=== PATIENT | female | born 1995 | race Caucasian/White ===

== ENCOUNTER 2016-09-03 10:30 | Emergency (ER) | payer OTHER ==
[2016-09-03] MEDS ORDERED: ONDANSETRON 4MG/2ML VIAL (J2405) As Ordered ONE (11:45)
[2016-09-03 11:53] LABS: BASO # 0.1 K/mm3 (0.0-0.2); BASO % 1.1 % (0.0-1.0); EOS # 0.1 K/mm3 (0.0-0.50); EOS % 1.4 % (0.0-3.0); LARGE UNSTAINED CELL # 0.1 K/mm3 (0.0-0.4); LARGE UNSTAINED CELL % 1.6 % (0.0-4.0); LYMPH # 1.6 K/mm3 (1.5-6.5); LYMPH % 18.4 % (24.0-44.0); MEAN CORPUSCULAR HEMOGLOBIN 28.7 pg (27.0-33.0); MEAN CORPUSCULAR HGB CONC 32.9 g/dl (32.0-36.5); MEAN CORPUSCULAR VOLUME 87.1 fl (80.0-96.0); MONO # 0.5 K/mm3 (0.0-0.8); NEUTROPHILS # 5.7 K/mm3 (1.8-7.7); NEUTROPHILS % 71.4 % (36.0-66.0); PLATELET COUNT, AUTOMATED 240 k/mm3 (150-450); RED CELL DISTRIBUTION WIDTH 14.5 % (11.5-14.5)
[2016-09-03 12:52] LABS: ALBUMIN 2.5 GM/DL (3.2-5.2); ALBUMIN/GLOBULIN RATIO 0.66 (1.00-1.93); ALKALINE PHOSPHATASE 91 U/L (45-117); ALT/SGPT 15 U/L (12-78); ANION GAP 8 MEQ/L (8-16); AST/SGOT 9 U/L (15-37); BILIRUBIN,DIRECT < 0.1 MG/DL (0.0-0.2); BILIRUBIN,TOTAL 0.3 MG/DL (0.2-1.0); BLOOD UREA NITROGEN 7 MG/DL (7-18); CALCIUM LEVEL 8.5 MG/DL (8.5-10.1); CARBON DIOXIDE LEVEL 26 MEQ/L (21-32); CHLORIDE LEVEL 107 MEQ/L (98-107); CREATININE FOR GFR 0.59 MG/DL (0.55-1.02); GLOMERULAR FILTRATION RATE > 60.0 (>60); GLUCOSE, FASTING 68 MG/DL (70-105); POTASSIUM SERUM 3.7 MEQ/L (3.5-5.1); SODIUM LEVEL 141 MEQ/L (136-145); TOTAL PROTEIN 6.3 GM/DL (6.4-8.2)
--- NOTE | 2016-09-03 13:45 | EDDOCDS ---
Nurse's Notes [facility] Name: Oralia Lim Age: 21 yrs Sex: Female : 1995 Arrival Date: 09/03/2016 Time: 10:30 Bed TR7 Private MD: Elizabet Dinero Diagnosis: Nausea and vomiting Presentation: 09/03 10:36 Presenting complaint: Patient states: "my urine is orange so I know that I'm severely hs1 dehydrated" Patient also reports feeling fine however having dizzy spells and lightheartedness. Patient states unable to keep anything down even Pedialyte. Pt reports day 3 of symptoms. Adult Sepsis Screening: The patient does not have new or worsening altered mentation. Patient's respiratory rate is less than 22. Systolic blood pressure is greater than 100. Patient has a qSOFA score of 0- Negative Sepsis Screen. Suicide/Homicide risk assessment- the patient denies having any suicidal and/or homicidal ideations and does not present with any other emotional, behavioral or mental health complaints. Status: Patient is not a service worker helper or dependent. Transition of care: patient was not received from another setting of care. 10:36 Acuity: MERI Level 3 hs1 10:36 Method Of Arrival: Walkin/Carried/Asstd hs1 Triage Assessment: 10:40 General: Appears in no apparent distress, Behavior is appropriate for age. Pain: Denies hs1 pain. HIV screening NA for this visit Offered previously. Respiratory: No deficits noted. Derm: Skin is pink, warm & dry. normal. 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 Vitamin Oral tab 1 tab once daily 2. Vitamin D Oral 1,000 unit daily 3. ferrous sulfate 325 mg (65 mg iron) Oral tab daily - PMHx: none; - PSHx: lower back tumors (fatty tumors) removed; - Social history: Smoking status: Patient states was never smoker of tobacco. No barriers to communication noted, The patient speaks fluent Micronesian, Speaks appropriately for age. - Family history: Not pertinent. - : The pt / caregiver states he / she is not on anticoagulants. Home medication list is obtained from the patient. - Exposure Risk Screening:: None identified. Screenin:49 Screening information is obtained from the patient. Fall risk: No risks identified. jjr Assistance ADL's: requires no assistance with activities of daily living. Abuse/DV Screen: The patient / caregiver reports he/she is: not in a situation that causes fear, pain or injury. Nutritional screening: No deficits noted. Advance Directives: There is no active DNR order. home support is adequate. Assessment: 11:50 General: Appears in no apparent distress, comfortable, Behavior is cooperative. Pain: mk4 Denies pain. GI: Abdomen is Bowel sounds present X 4 quads. Abd is soft and non tender Reports nausea, vomiting, since the past 2 weeks , denies any pain. Derm: Skin is intact, is healthy with good turgor, Skin is pink, warm & dry. 12:48 General: Appears in no apparent distress, Behavior is appropriate for age. Pain: Denies jjr pain. GI: Denies nausea. : Denies cramping vaginal bleeding. Derm: No deficits noted. 13:20 Reassessment: Patient denies pain at this time. Patient states feeling better. Patient mk4 states symptoms have improved. Vital Signs: 10:31 BP 122 / 89; Pulse 86; Resp 18; Temp 97.4; Pulse Ox 100% ; Weight 87.54 kg; Height 5 jlf ft. 0 in. (152.40 cm); Pain 0/10; 13:22 BP 109 / 51 LA Supine (auto/lg); Pulse 77; Resp 18; Temp 97.3(O); Pulse Ox 95% ; Pain bnb 0/10; 10:31 Body Mass Index 37.69 (87.54 kg, 152.40 cm) [facility] Vitals: 10:31 Log In Time: September 03, 2016 at 10:31. jlf 11:44 Heart Tones: 138BPM. mk4 ED Course: 10:31 Patient visited by Osmel Neal PCA. jlf 10:31 Elizabet Dinero is Private Physician. jlf 10:31 Patient moved to Waiting jlf 10:32 Patient visited by Osmel Neal PCA. jlf 10:32 Patient moved to Pre RCE jlf 10:38 Triage Initiated hs1 11:11 Patient moved to Triage 1 mlb1 11:12 Patient visited by Caren Bower RN. ck1 11:12 [facility] cc10 11:12 Landy Fitch MD is Attending Physician. cc10 11:12 Patient visited by Bruce Katz PA-C. cc10 11:12 Patient visited by Bruce Katz PA-C. cc10 11:20 Inserted saline lock: 20 gauge in left antecubital area and blood collected. mk4 11:24 Patient moved to / ck1 11:26 UA Sent. ck1 11:44 Patient visited by Manju Nieot RN. mk4 11:44 Liver Profile Sent. mk4 11:44 BMP Sent. mk4 11:44 CBC with Diff Sent. mk4 12:40 Patient name changed from Oralia\\S\\Magalys\\S\\Deline\\S\\ to Oralia\\S\\N\\S\\Deline. EDMS 12:42 [facility] Payment Agreement was scanned into [employer] and attached to record. lg 12:49 Patient visited by Daniella Chopra RN. jjr 12:49 The patient / caregiver is instructed regarding the plan of care and ED course. jjr 12:54 Patient visited by Yahaira Starr PSA. cs14 12:57 Your Creative Specialist is Referral Physician. cc10 13:20 Discontinued IV lock bleeding controlled, pressure dressing applied. No procedures done mk4 that require assistance. 13:22 Patient visited by Janene Mccarthy PCA. bnb 13:36 Patient moved to [facility] mk4 Administered Medications: 11:49 Drug: NS 0.9% 1000 ml [sodium chloride 0.9 % intravenous solution] Route: IV; Rate: mk4 bolus; Site: left forearm; 12:48 Follow up: IV Status: Completed infusion; IV Intake: 1000ml jjr 11:49 Drug: Ondansetron 4 mg Route: IVP; Site: left forearm; mk4 Intake: 12:48 IV: 1000.00ml; Total: 1000.00ml. jjr Order Results: Lab Order: CBC with Diff; SPEC'M 09/03/16 11:37 Test: WHITE BLOOD COUNT; Value: 8.0; Range: 4.0-10.0; Units: K/mm3; Status: F Test: RED BLOOD COUNT; Value: 4.22; Range: 4.00-5.40; Units: M/mm3; Status: F Test: HEMOGLOBIN; Value: 12.1; Range: 12.0-16.0; Units: g/dl; Status: F Test: HEMATOCRIT; Value: 36.8; Range: 36.0-47.0; Units: %; Status: F Test: MEAN CORPUSCULAR VOLUME; Value: 87.1; Range: 80.0-96.0; Units: fl; Status: F Test: MEAN CORPUSCULAR HEMOGLOBIN; Value: 28.7; Range: 27.0-33.0; Units: pg; Status: F Test: MEAN CORPUSCULAR HGB CONC; Value: 32.9; Range: 32.0-36.5; Units: g/dl; Status: F Test: RED CELL DISTRIBUTION WIDTH; Value: 14.5; Range: 11.5-14.5; Units: %; Status: F Test: PLATELET COUNT, AUTOMATED; Value: 240; Range: 150-450; Units: k/mm3; Status: F Test: NEUTROPHILS %; Value: 71.4; Range: 36.0-66.0; Abnormal: Above high normal; Units: %; Status: F Test: LYMPH %; Value: 18.4; Range: 24.0-44.0; Abnormal: Below low normal; Units: %; Status: F Test: MONO %; Value: 6.0; Range: 0.0-5.0; Abnormal: Above high normal; Units: %; Status: F Test: EOS %; Value: 1.4; Range: 0.0-3.0; Units: %; Status: F Test: BASO %; Value: 1.1; Range: 0.0-1.0; Abnormal: Above high normal; Units: %; Status: F Test: LARGE UNSTAINED CELL %; Value: 1.6; Range: 0.0-4.0; Units: %; Status: F Test: NEUTROPHILS #; Value: 5.7; Range: 1.8-7.7; Units: K/mm3; Status: F Test: LYMPH #; Value: 1.6; Range: 1.5-6.5; Units: K/mm3; Status: F Test: MONO #; Value: 0.5; Range: 0.0-0.8; Units: K/mm3; Status: F Test: EOS #; Value: 0.1; Range: 0.0-0.50; Units: K/mm3; Status: F Test: BASO #; Value: 0.1; Range: 0.0-0.2; Units: K/mm3; Status: F Test: LARGE UNSTAINED CELL #; Value: 0.1; Range: 0.0-0.4; Units: K/mm3; Status: F Lab Order: BMP; SPEC'M 09/03/16 12:08 Test: GLUCOSE, FASTING; Value: 68; Range: 70-105; Abnormal: Below low normal; Units: MG/DL; Status: F Test: BLOOD UREA NITROGEN; Value: 7; Range: 7-18; Units: MG/DL; Status: F Test: CREATININE FOR GFR; Value: 0.59; Range: 0.55-1.02; Units: MG/DL; Status: F Test: GLOMERULAR FILTRATION RATE; Value: > 60.0; Range: >60; Status: F Test: SODIUM LEVEL; Value: 141; Range: 136-145; Units: MEQ/L; Status: F Test: POTASSIUM SERUM; Value: 3.7; Range: 3.5-5.1; Units: MEQ/L; Status: F Test: CHLORIDE LEVEL; Value: 107; Range: 98-107; Units: MEQ/L; Status: F Test: CARBON DIOXIDE LEVEL; Value: 26; Range: 21-32; Units: MEQ/L; Status: F Test: ANION GAP; Value: 8; Range: 8-16; Units: MEQ/L; Status: F Test: CALCIUM LEVEL; Value: 8.5; Range: 8.5-10.1; Units: MG/DL; Status: F Test Note: ; Units are mL/min/1.73 m2 Chronic Kidney Disease Staging per NKF: Stage I & II GFR >=60 Normal to Mildly Decreased Stage III GFR 30-59 Moderately Decreased Stage IV GFR 15-29 Severely Decreased Stage V GFR <15 Very Little GFR Left ESRD GFR <15 on FLAG SIGNALMAN Lab Order: Liver Profile; SPEC'M 09/03/16 12:08 Test: AST/SGOT; Value: 9; Range: 15-37; Abnormal: Below low normal; Units: U/L; Status: F Test: ALT/SGPT; Value: 15; Range: 12-78; Units: U/L; Status: F Test: ALKALINE PHOSPHATASE; Value: 91; Range: 45-117; Units: U/L; Status: F Test: BILIRUBIN,TOTAL; Value: 0.3; Range: 0.2-1.0; Units: MG/DL; Status: F Test: BILIRUBIN,DIRECT; Value: < 0.1; Range: 0.0-0.2; Units: MG/DL; Status: F Test: TOTAL PROTEIN; Value: 6.3; Range: 6.4-8.2; Abnormal: Below low normal; Units: GM/DL; Status: F Test: ALBUMIN; Value: 2.5; Range: 3.2-5.2; Abnormal: Below low normal; Units: GM/DL; Status: F Test: ALBUMIN/GLOBULIN RATIO; Value: 0.66; Range: 1.00-1.93; Abnormal: Below low normal; Status: F Lab Order: UA; SPEC'M 09/03/16 11:25 Test: APPEARANCE, URINE; Value: CLOUDY; Range: CLEAR; Abnormal: Above high normal; Status: F Test: COLOR, URINE; Value: GIANNA; Range: YELLOW; Status: F Test: PH,URINE; Value: 5.0; Range: 5.0-9.0; Units: UNITS; Status: F Test: SPECIFIC GRAVITY URINE AUTO; Value: 1.028; Range: 1.002-1.035; Status: F Test: PROTEIN, URINE AUTO; Value: 1+; Range: NEGATIVE; Abnormal: Above high normal; Units: mg/dL; Status: F Test: GLUCOSE, URINE (UA) AUTO; Value: NEGATIVE; Range: NEGATIVE; Units: mg/dL; Status: F Test: KETONE, URINE AUTO; Value: 1+; Range: NEGATIVE; Abnormal: Above high normal; Units: mg/dL; Status: F Test: UROBILINOGEN, URINE AUTO; Value: 4.0; Range: 0.0-2.0; Abnormal: Above high normal; Units: mg/dL; Status: F Test: BILIRUBIN, URINE AUTO; Value: 1+; Range: NEGATIVE; Abnormal: Above high normal; Status: F Test: NITRITE, URINE AUTO; Value: NEGATIVE; Range: NEGATIVE; Status: F Test: LEUKOCYTE ESTERASE, URINE AUTO; Value: 2+; Range: NEGATIVE; Abnormal: Above high normal; Status: F Test: BLOOD, URINE BLOOD; Value: NEGATIVE; Range: NEGATIVE; Status: F Test: WBC, URINE AUTO; Value: 5; Range: 0-3; Abnormal: Above high normal; Units: /HPF; Status: F Test: RBC, URINE AUTO; Value: 4; Range: 0-3; Abnormal: Above high normal; Units: /HPF; Status: F Test: BACTERIA, URINE AUTO; Value: NEGATIVE; Range: NEGATIVE; Status: F Test: SQUAMOUS EPITHELIAL CELL UR AU; Value: 32; Range: 0-6; Units: /HPF; Status: F Test: TRANSITIONAL EPITHELIAL AUTO; Value: 1; Range: NONE; Units: /HPF; Status: F Test: MUCUS, URINE; Value: LARGE; Range: NEGATIVE; Status: F Test: HYALINE CAST, URINE AUTO; Value: 0; Range: 0-1; Units: /LPF; Status: F Outcome: 12:57 Discharge ordered by Provider. cc10 13:20 Discharge Assessment: Patient awake, alert and oriented x 3. No cognitive and/or mk4 functional deficits noted. Patient verbalized understanding of disposition instructions. Patient awake and alert. Discharge Assessment: patient administered narcotics - no. The following High Risk Discharge criteria are identified: None. Condition: good Condition: stable. No special radiology studies were completed. Property sent home with patient. 13:44 Patient left the ED. mk4 Signatures: Dispatcher [employer] EDPR Raúl Willett, Reg Reg lg Ayo Lawson, RN RN mlb1 Caren BowerRN RN ck1 Daniella Chopra RN RN Sofy Hou RN RN hs1 Manju Nieto RN RN mk4 Osmel Neal, HIDE WASHER HIDE WASHER jlf Bruce Katz, PA-C PA-C cc10 Yahaira Starr, PSA PSA cs14 Janene Mccarthy, HIDE WASHER HIDE WASHER bnb MTDD
--- NOTE | 2016-09-03 13:45 | EDDOCDS ---
Physician Documentation [facility] Name: Oralia Lim Age: 21 yrs Sex: Female : 1995 Arrival Date: 09/03/2016 Time: 10:30 Bed TR7 Private MD: Elizabet Dinero Disposition: 09/03/16 12:57 Discharged to Home/Self Care. Impression: Nausea and vomiting. - Condition is Stable. - Discharge Instructions: Nausea and Vomiting. - Prescriptions for promethazine 25 mg Oral Tablet - take 1 tablet by ORAL route every 6 hours As needed; 12 tablet. - Medication Reconciliation, Local Pharmacy Hours form. - Follow up: Emergency Department; When: As needed; Reason: Worsening of conditions. Follow up: Your Freelance Recruiter; When: Call to arrange an appointment; Reason: Wound/Symptom Recheck, Recheck today's complaints, Worsening of conditions, Continuance of care. - Problem is an ongoing problem. - Symptoms have improved. Historical: - Allergies: no known allergies; - Home Meds: 1. Vitamin Oral tab 1 tab once daily 2. Vitamin D Oral 1,000 unit daily 3. ferrous sulfate 325 mg (65 mg iron) Oral tab daily - PMHx: none; - PSHx: lower back tumors (fatty tumors) removed; - Social history: Smoking status: Patient states was never smoker of tobacco. No barriers to communication noted, The patient speaks fluent Chinese, Speaks appropriately for age. - Family history: Not pertinent. - : The pt / caregiver states he / she is not on anticoagulants. Home medication list is obtained from the patient. - Exposure Risk Screening:: None identified. 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 0 in. (152.40 cm); Pain 0/10; 13:22 BP 109 / 51 LA Supine (auto/lg); Pulse 77; Resp 18; Temp 97.3(O); Pulse Ox 95% ; Pain bnb 0/10; 10:31 Body Mass Index 37.69 (87.54 kg, 152.40 cm) [facility] MDM: 11:20 Heart Tones ordered. cc10 11:20 IV Saline Lock ordered. cc10 11:20 NS 0.9% 1000 ml IV at bolus once ordered. cc10 11:20 Ondansetron 4 mg IVP once ordered. cc10 11:21 CBC with Diff Ordered. EDMS 11:21 BMP Ordered. EDMS 11:21 Liver Profile Ordered. EDMS 11:21 UA Ordered. EDMS 12:41 Financial registration complete. lg 12:42 [facility] Payment Agreement was scanned into [employer] and attached to record. lg 13:00 CBC with Diff Reviewed. cc10 13:00 BMP Reviewed. cc10 13:00 Liver Profile Reviewed. cc10 13:00 UA Reviewed. cc10 Administered Medications: 11:49 Drug: NS 0.9% 1000 ml [sodium chloride 0.9 % intravenous solution] Route: IV; Rate: mk4 bolus; Site: left forearm; 12:48 Follow up: IV Status: Completed infusion; IV Intake: 1000ml jjr 11:49 Drug: Ondansetron 4 mg Route: IVP; Site: left forearm; mk4 Signatures: Dispatcher [employer] EDRaúl Rojas, Esteban Reg Sofy Orozco, RN RN hs1 Manju Nieto RN RN mk4 Bruce Katz PA-C PA-C cc10 Daniella Chopra RN jjr The chart was reviewed and I authenticate all verbal orders and agree with the evaluation and treatment provided.Attachments: 12:42 [facility] Payment Agreement lg MTDD
--- NOTE | 2016-09-05 14:45 | EDDOCDS ---
Physician Documentation [facility] Name: Oralia Lim Age: 21 yrs Sex: Female : 1995 Arrival Date: 09/03/2016 Time: 10:30 Bed TR7 Private MD: Elizabet Dinero Disposition: 09/03/16 12:57 Discharged to Home/Self Care. Impression: Nausea and vomiting. - Condition is Stable. - Discharge Instructions: Nausea and Vomiting. - Prescriptions for promethazine 25 mg Oral Tablet - take 1 tablet by ORAL route every 6 hours As needed; 12 tablet. - Medication Reconciliation, Local Pharmacy Hours form. - Follow up: Emergency Department; When: As needed; Reason: Worsening of conditions. Follow up: Your Plant General Manager; When: Call to arrange an appointment; Reason: Wound/Symptom Recheck, Recheck today's complaints, Worsening of conditions, Continuance of care. - Problem is an ongoing problem. - Symptoms have improved. Historical: - Allergies: no known allergies; - Home Meds: 1. Vitamin Oral tab 1 tab once daily 2. Vitamin D Oral 1,000 unit daily 3. ferrous sulfate 325 mg (65 mg iron) Oral tab daily - PMHx: none; - PSHx: lower back tumors (fatty tumors) removed; - Social history: Smoking status: Patient states was never smoker of tobacco. No barriers to communication noted, The patient speaks fluent Greek, Speaks appropriately for age. - Family history: Not pertinent. - : The pt / caregiver states he / she is not on anticoagulants. Home medication list is obtained from the patient. - Exposure Risk Screening:: None identified. 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 0 in. (152.40 cm); Pain 0/10; 13:22 BP 109 / 51 LA Supine (auto/lg); Pulse 77; Resp 18; Temp 97.3(O); Pulse Ox 95% ; Pain bnb 0/10; 10:31 Body Mass Index 37.69 (87.54 kg, 152.40 cm) [facility] MDM: 11:20 Heart Tones ordered. cc10 11:20 IV Saline Lock ordered. cc10 11:20 NS 0.9% 1000 ml IV at bolus once ordered. cc10 11:20 Ondansetron 4 mg IVP once ordered. cc10 11:21 CBC with Diff Ordered. EDMS 11:21 BMP Ordered. EDMS 11:21 Liver Profile Ordered. EDMS 11:21 UA Ordered. EDMS 12:41 Financial registration complete. lg 12:42 [facility] Payment Agreement was scanned into [employer] and attached to record. lg 13:00 CBC with Diff Reviewed. cc10 13:00 BMP Reviewed. cc10 13:00 Liver Profile Reviewed. cc10 13:00 UA Reviewed. cc10 14:49 T-Sheet-- Draft Copy was scanned into [employer] and attached to record. gb Administered Medications: 11:49 Drug: NS 0.9% 1000 ml [sodium chloride 0.9 % intravenous solution] Route: IV; Rate: mk4 bolus; Site: left forearm; 12:48 Follow up: IV Status: Completed infusion; IV Intake: 1000ml jjr 11:49 Drug: Ondansetron 4 mg Route: IVP; Site: left forearm; mk4 Signatures: Dispatcher [employer] EDMS Rachael Taylor, Reg Reg Raúl Pennington, Reg Reg lg Sofy Orozco, RN RN hs1 Manju Nieto RN RN mk4 Bruce Katz PA-C PABarbara cc10 Daniella Chopra RN jjr The chart was reviewed and I authenticate all verbal orders and agree with the evaluation and treatment provided.Attachments: 12:42 [facility] Payment Agreement lg 14:49 T-Sheet-- Draft Copy gb Chart Complete MTDD
--- NOTE | 2016-09-05 14:45 | EDDOCDS ---
Nurse's Notes [facility] Name: Oralia Lim Age: 21 yrs Sex: Female : 1995 Arrival Date: 09/03/2016 Time: 10:30 Bed TR7 Private MD: Elizabet Dinero Diagnosis: Nausea and vomiting Presentation: 09/03 10:36 Presenting complaint: Patient states: "my urine is orange so I know that I'm severely hs1 dehydrated" Patient also reports feeling fine however having dizzy spells and lightheartedness. Patient states unable to keep anything down even Pedialyte. Pt reports day 3 of symptoms. Adult Sepsis Screening: The patient does not have new or worsening altered mentation. Patient's respiratory rate is less than 22. Systolic blood pressure is greater than 100. Patient has a qSOFA score of 0- Negative Sepsis Screen. Suicide/Homicide risk assessment- the patient denies having any suicidal and/or homicidal ideations and does not present with any other emotional, behavioral or mental health complaints. Status: Patient is not a coordinator of health services or dependent. Transition of care: patient was not received from another setting of care. 10:36 Acuity: MERI Level 3 hs1 10:36 Method Of Arrival: Walkin/Carried/Asstd hs1 Triage Assessment: 10:40 General: Appears in no apparent distress, Behavior is appropriate for age. Pain: Denies hs1 pain. HIV screening NA for this visit Offered previously. Respiratory: No deficits noted. Derm: Skin is pink, warm & dry. normal. 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 Vitamin Oral tab 1 tab once daily 2. Vitamin D Oral 1,000 unit daily 3. ferrous sulfate 325 mg (65 mg iron) Oral tab daily - PMHx: none; - PSHx: lower back tumors (fatty tumors) removed; - Social history: Smoking status: Patient states was never smoker of tobacco. No barriers to communication noted, The patient speaks fluent [place], Speaks appropriately for age. - Family history: Not pertinent. - : The pt / caregiver states he / she is not on anticoagulants. Home medication list is obtained from the patient. - Exposure Risk Screening:: None identified. Screenin:49 Screening information is obtained from the patient. Fall risk: No risks identified. jjr Assistance ADL's: requires no assistance with activities of daily living. Abuse/DV Screen: The patient / caregiver reports he/she is: not in a situation that causes fear, pain or injury. Nutritional screening: No deficits noted. Advance Directives: There is no active DNR order. home support is adequate. Assessment: 11:50 General: Appears in no apparent distress, comfortable, Behavior is cooperative. Pain: mk4 Denies pain. GI: Abdomen is Bowel sounds present X 4 quads. Abd is soft and non tender Reports nausea, vomiting, since the past 2 weeks , denies any pain. Derm: Skin is intact, is healthy with good turgor, Skin is pink, warm & dry. 12:48 General: Appears in no apparent distress, Behavior is appropriate for age. Pain: Denies jjr pain. GI: Denies nausea. : Denies cramping vaginal bleeding. Derm: No deficits noted. 13:20 Reassessment: Patient denies pain at this time. Patient states feeling better. Patient mk4 states symptoms have improved. Vital Signs: 10:31 BP 122 / 89; Pulse 86; Resp 18; Temp 97.4; Pulse Ox 100% ; Weight 87.54 kg; Height 5 jlf ft. 0 in. (152.40 cm); Pain 0/10; 13:22 BP 109 / 51 LA Supine (auto/lg); Pulse 77; Resp 18; Temp 97.3(O); Pulse Ox 95% ; Pain bnb 0/10; 10:31 Body Mass Index 37.69 (87.54 kg, 152.40 cm) [facility] Vitals: 10:31 Log In Time: September 03, 2016 at 10:31. jlf 11:44 Heart Tones: 138BPM. mk4 ED Course: 10:31 Patient visited by Osmel Neal PCA. jlf 10:31 Elizabet Dinero is Private Physician. jlf 10:31 Patient moved to Waiting jlf 10:32 Patient visited by Osmel Neal PCA. jlf 10:32 Patient moved to Pre RCE jlf 10:38 Triage Initiated hs1 11:11 Patient moved to Triage 1 mlb1 11:12 Patient visited by Caren Bower RN. ck1 11:12 [facility] cc10 11:12 Landy Fitch MD is Attending Physician. cc10 11:12 Patient visited by Bruce Katz PA-C. cc10 11:12 Patient visited by Bruce Katz PA-C. cc10 11:20 Inserted saline lock: 20 gauge in left antecubital area and blood collected. mk4 11:24 Patient moved to / ck1 11:26 UA Sent. ck1 11:44 Patient visited by Manju Nieto RN. mk4 11:44 Liver Profile Sent. mk4 11:44 BMP Sent. mk4 11:44 CBC with Diff Sent. mk4 12:40 Patient name changed from Oralia\\S\\Magalys\\S\\Deline\\S\\ to Oralia\\S\\N\\S\\Deline. EDMS 12:42 [facility] [place] Payment Agreement was scanned into [employer] and attached to record. lg 12:49 Patient visited by Daniella Chopra RN. jjr 12:49 The patient / caregiver is instructed regarding the plan of care and ED course. jjr 12:54 Patient visited by Yahaira Starr PSA. cs14 12:57 Your Catalyst Manufacturing Operator is Referral Physician. cc10 13:20 Discontinued IV lock bleeding controlled, pressure dressing applied. No procedures done mk4 that require assistance. 13:22 Patient visited by Janene Mccarthy PCA. bnb 13:36 Patient moved to [facility] mk4 14:49 T-Sheet-- Draft Copy was scanned into [employer] and attached to record. gb Administered Medications: 11:49 Drug: NS 0.9% 1000 ml [sodium chloride 0.9 % intravenous solution] Route: IV; Rate: mk4 bolus; Site: left forearm; 12:48 Follow up: IV Status: Completed infusion; IV Intake: 1000ml jjr 11:49 Drug: Ondansetron 4 mg Route: IVP; Site: left forearm; mk4 Intake: 12:48 IV: 1000.00ml; Total: 1000.00ml. jjr Order Results: Lab Order: CBC with Diff; SPEC'M 09/03/16 11:37 Test: WHITE BLOOD COUNT; Value: 8.0; Range: 4.0-10.0; Units: K/mm3; Status: F Test: RED BLOOD COUNT; Value: 4.22; Range: 4.00-5.40; Units: M/mm3; Status: F Test: HEMOGLOBIN; Value: 12.1; Range: 12.0-16.0; Units: g/dl; Status: F Test: HEMATOCRIT; Value: 36.8; Range: 36.0-47.0; Units: %; Status: F Test: MEAN CORPUSCULAR VOLUME; Value: 87.1; Range: 80.0-96.0; Units: fl; Status: F Test: MEAN CORPUSCULAR HEMOGLOBIN; Value: 28.7; Range: 27.0-33.0; Units: pg; Status: F Test: MEAN CORPUSCULAR HGB CONC; Value: 32.9; Range: 32.0-36.5; Units: g/dl; Status: F Test: RED CELL DISTRIBUTION WIDTH; Value: 14.5; Range: 11.5-14.5; Units: %; Status: F Test: PLATELET COUNT, AUTOMATED; Value: 240; Range: 150-450; Units: k/mm3; Status: F Test: NEUTROPHILS %; Value: 71.4; Range: 36.0-66.0; Abnormal: Above high normal; Units: %; Status: F Test: LYMPH %; Value: 18.4; Range: 24.0-44.0; Abnormal: Below low normal; Units: %; Status: F Test: MONO %; Value: 6.0; Range: 0.0-5.0; Abnormal: Above high normal; Units: %; Status: F Test: EOS %; Value: 1.4; Range: 0.0-3.0; Units: %; Status: F Test: BASO %; Value: 1.1; Range: 0.0-1.0; Abnormal: Above high normal; Units: %; Status: F Test: LARGE UNSTAINED CELL %; Value: 1.6; Range: 0.0-4.0; Units: %; Status: F Test: NEUTROPHILS #; Value: 5.7; Range: 1.8-7.7; Units: K/mm3; Status: F Test: LYMPH #; Value: 1.6; Range: 1.5-6.5; Units: K/mm3; Status: F Test: MONO #; Value: 0.5; Range: 0.0-0.8; Units: K/mm3; Status: F Test: EOS #; Value: 0.1; Range: 0.0-0.50; Units: K/mm3; Status: F Test: BASO #; Value: 0.1; Range: 0.0-0.2; Units: K/mm3; Status: F Test: LARGE UNSTAINED CELL #; Value: 0.1; Range: 0.0-0.4; Units: K/mm3; Status: F Lab Order: [facility]; SPEC'M 09/03/16 12:08 Test: GLUCOSE, FASTING; Value: 68; Range: 70-105; Abnormal: Below low normal; Units: MG/DL; Status: F Test: BLOOD UREA NITROGEN; Value: 7; Range: 7-18; Units: MG/DL; Status: F Test: CREATININE FOR GFR; Value: 0.59; Range: 0.55-1.02; Units: MG/DL; Status: F Test: GLOMERULAR FILTRATION RATE; Value: > 60.0; Range: >60; Status: F Test: SODIUM LEVEL; Value: 141; Range: 136-145; Units: MEQ/L; Status: F Test: POTASSIUM SERUM; Value: 3.7; Range: 3.5-5.1; Units: MEQ/L; Status: F Test: CHLORIDE LEVEL; Value: 107; Range: 98-107; Units: MEQ/L; Status: F Test: CARBON DIOXIDE LEVEL; Value: 26; Range: 21-32; Units: MEQ/L; Status: F Test: ANION GAP; Value: 8; Range: 8-16; Units: MEQ/L; Status: F Test: CALCIUM LEVEL; Value: 8.5; Range: 8.5-10.1; Units: MG/DL; Status: F Test Note: ; Units are mL/min/1.73 m2 Chronic Kidney Disease Staging per NKF: Stage I & II GFR >=60 Normal to Mildly Decreased Stage III GFR 30-59 Moderately Decreased Stage IV GFR 15-29 Severely Decreased Stage V GFR <15 Very Little GFR Left ESRD GFR <15 on BUILDING APPRAISER Lab Order: Liver Profile; SPEC'M 09/03/16 12:08 Test: AST/SGOT; Value: 9; Range: 15-37; Abnormal: Below low normal; Units: U/L; Status: F Test: ALT/SGPT; Value: 15; Range: 12-78; Units: U/L; Status: F Test: ALKALINE PHOSPHATASE; Value: 91; Range: 45-117; Units: U/L; Status: F Test: BILIRUBIN,TOTAL; Value: 0.3; Range: 0.2-1.0; Units: MG/DL; Status: F Test: BILIRUBIN,DIRECT; Value: < 0.1; Range: 0.0-0.2; Units: MG/DL; Status: F Test: TOTAL PROTEIN; Value: 6.3; Range: 6.4-8.2; Abnormal: Below low normal; Units: GM/DL; Status: F Test: ALBUMIN; Value: 2.5; Range: 3.2-5.2; Abnormal: Below low normal; Units: GM/DL; Status: F Test: ALBUMIN/GLOBULIN RATIO; Value: 0.66; Range: 1.00-1.93; Abnormal: Below low normal; Status: F Lab Order: UA; SPEC'M 09/03/16 11:25 Test: APPEARANCE, URINE; Value: CLOUDY; Range: CLEAR; Abnormal: Above high normal; Status: F Test: COLOR, URINE; Value: GIANNA; Range: YELLOW; Status: F Test: PH,URINE; Value: 5.0; Range: 5.0-9.0; Units: UNITS; Status: F Test: SPECIFIC GRAVITY URINE AUTO; Value: 1.028; Range: 1.002-1.035; Status: F Test: PROTEIN, URINE AUTO; Value: 1+; Range: NEGATIVE; Abnormal: Above high normal; Units: mg/dL; Status: F Test: GLUCOSE, URINE (UA) AUTO; Value: NEGATIVE; Range: NEGATIVE; Units: mg/dL; Status: F Test: KETONE, URINE AUTO; Value: 1+; Range: NEGATIVE; Abnormal: Above high normal; Units: mg/dL; Status: F Test: UROBILINOGEN, URINE AUTO; Value: 4.0; Range: 0.0-2.0; Abnormal: Above high normal; Units: mg/dL; Status: F Test: BILIRUBIN, URINE AUTO; Value: 1+; Range: NEGATIVE; Abnormal: Above high normal; Status: F Test: NITRITE, URINE AUTO; Value: NEGATIVE; Range: NEGATIVE; Status: F Test: LEUKOCYTE ESTERASE, URINE AUTO; Value: 2+; Range: NEGATIVE; Abnormal: Above high normal; Status: F Test: BLOOD, URINE BLOOD; Value: NEGATIVE; Range: NEGATIVE; Status: F Test: WBC, URINE AUTO; Value: 5; Range: 0-3; Abnormal: Above high normal; Units: /HPF; Status: F Test: RBC, URINE AUTO; Value: 4; Range: 0-3; Abnormal: Above high normal; Units: /HPF; Status: F Test: BACTERIA, URINE AUTO; Value: NEGATIVE; Range: NEGATIVE; Status: F Test: SQUAMOUS EPITHELIAL CELL UR AU; Value: 32; Range: 0-6; Units: /HPF; Status: F Test: TRANSITIONAL EPITHELIAL AUTO; Value: 1; Range: NONE; Units: /HPF; Status: F Test: MUCUS, URINE; Value: LARGE; Range: NEGATIVE; Status: F Test: HYALINE CAST, URINE AUTO; Value: 0; Range: 0-1; Units: /LPF; Status: F Outcome: 12:57 Discharge ordered by Provider. cc10 13:20 Discharge Assessment: Patient awake, alert and oriented x 3. No cognitive and/or mk4 functional deficits noted. Patient verbalized understanding of disposition instructions. Patient awake and alert. Discharge Assessment: patient administered narcotics - no. The following High Risk Discharge criteria are identified: None. Condition: good Condition: stable. No special radiology studies were completed. Property sent home with patient. 13:44 Patient left the ED. mk4 Signatures: Dispatcher [employer] EDNC Rachael Taylor, Reg Reg gb Raúl Willett, Reg Reg lg Renny, Ayo Jackson RN RN mlb1 Caren BowerRN RN ck1 Daniella Chopra RN RN Sofy Hou RN RN hs1 Manju Nieto RN RN mk4 Val, Osmel, MEDICAL INSURANCE BILLER MEDICAL INSURANCE BILLER jlf Bruce Katz, PA-C PA-C cc10 Matty, Yahaira, PSA PSA cs14 Janene Mccarthy, MEDICAL INSURANCE BILLER MEDICAL INSURANCE BILLER bnb Chart Complete MTDD
--- NOTE | 2016-09-05 14:45 | EDDOCDS ---
Physician Documentation [facility] Name: Oralia Lim Age: 21 yrs Sex: Female : 1995 Arrival Date: 09/03/2016 Time: 10:30 Bed TR7 Private MD: Elizabet Dinero Disposition: 09/03/16 12:57 Discharged to Home/Self Care. Impression: Nausea and vomiting. - Condition is Stable. - Discharge Instructions: Nausea and Vomiting. - Prescriptions for promethazine 25 mg Oral Tablet - take 1 tablet by ORAL route every 6 hours As needed; 12 tablet. - Medication Reconciliation, Local Pharmacy Hours form. - Follow up: Emergency Department; When: As needed; Reason: Worsening of conditions. Follow up: Your Change Management Expert; When: Call to arrange an appointment; Reason: Wound/Symptom Recheck, Recheck today's complaints, Worsening of conditions, Continuance of care. - Problem is an ongoing problem. - Symptoms have improved. Historical: - Allergies: no known allergies; - Home Meds: 1. Vitamin Oral tab 1 tab once daily 2. Vitamin D Oral 1,000 unit daily 3. ferrous sulfate 325 mg (65 mg iron) Oral tab daily - PMHx: none; - PSHx: lower back tumors (fatty tumors) removed; - Social history: Smoking status: Patient states was never smoker of tobacco. No barriers to communication noted, The patient speaks fluent Yi, Speaks appropriately for age. - Family history: Not pertinent. - : The pt / caregiver states he / she is not on anticoagulants. Home medication list is obtained from the patient. - Exposure Risk Screening:: None identified. 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 0 in. (152.40 cm); Pain 0/10; 13:22 BP 109 / 51 LA Supine (auto/lg); Pulse 77; Resp 18; Temp 97.3(O); Pulse Ox 95% ; Pain bnb 0/10; 10:31 Body Mass Index 37.69 (87.54 kg, 152.40 cm) [facility] MDM: 11:20 Heart Tones ordered. cc10 11:20 IV Saline Lock ordered. cc10 11:20 NS 0.9% 1000 ml IV at bolus once ordered. cc10 11:20 Ondansetron 4 mg IVP once ordered. cc10 11:21 CBC with Diff Ordered. EDMS 11:21 BMP Ordered. EDMS 11:21 Liver Profile Ordered. EDMS 11:21 UA Ordered. EDMS 12:41 Financial registration complete. lg 12:42 [facility] Payment Agreement was scanned into [employer] and attached to record. lg 13:00 CBC with Diff Reviewed. cc10 13:00 BMP Reviewed. cc10 13:00 Liver Profile Reviewed. cc10 13:00 UA Reviewed. cc10 14:49 T-Sheet-- Draft Copy was scanned into [employer] and attached to record. gb Administered Medications: 11:49 Drug: NS 0.9% 1000 ml [sodium chloride 0.9 % intravenous solution] Route: IV; Rate: mk4 bolus; Site: left forearm; 12:48 Follow up: IV Status: Completed infusion; IV Intake: 1000ml jjr 11:49 Drug: Ondansetron 4 mg Route: IVP; Site: left forearm; mk4 Signatures: Dispatcher [employer] EDMS Rachael Taylor, Reg Reg Raúl Pennington, Reg Reg lg Sofy Orozco, RN RN hs1 Manju Nieto RN RN mk4 Bruce Katz PA-C PABarbara cc10 Daniella Chopra RN jjr The chart was reviewed and I authenticate all verbal orders and agree with the evaluation and treatment provided.Attachments: 12:42 [facility] Payment Agreement lg 14:49 T-Sheet-- Draft Copy gb Chart Complete MTDD
== END 2016-09-03 13:44 | disposition home or self-care (01) ==
LOC: M ED 10:30
DX: O21.9 Vomiting of pregnancy, unspecified (principal); Z3A.33 33 weeks gestation of pregnancy; Z79.899 Other long term (current) drug therapy
CPT/HCPCS: 36415; 80048; 80076; 81001; 85025; 96361; 96374; 99284; J2405

== ENCOUNTER 2018-01-04 10:24 | Emergency (ER) | payer OTHER ==
[2018-01-04] MEDS: DERMABOND TOPICAL SKIN ADHESIVE TOP (12:00)
== END 2018-01-04 12:22 | disposition home or self-care (01) ==
LOC: M ED 10:24
DX: S61.451A Open bite of right hand, initial encounter (principal); S51.852A Open bite of left forearm, initial encounter; W54.0XXA Bitten by dog, initial encounter; Y92.009 Unspecified place in unspecified non-institutional (private) residence as the place of occurrence of the external cause; J45.909 Unspecified asthma, uncomplicated
CPT/HCPCS: 99283

== ENCOUNTER 2018-07-05 07:53 | Day surgery (SDC) | payer OTHER ==
[2018-07-05] MEDS: NS 1,000 ML IV (07:00)
[~2018-07-05 07:53] MED LIST: LIDOCAINE 2% INJ 100 MG/5 ML SDV (FOR ANES.) As Ordered; PROPOFOL 200 MG/20 ML VIAL As Ordered
[2018-07-05] MEDS ORDERED: PROPARACAINE 0.5% OPHTH SOL 15ML As Ordered (09:21)
[2018-07-05] MEDS ORDERED: PROPOFOL 200 MG/20 ML VIAL As Ordered (09:53)
[2018-07-05] MEDS ORDERED: PROPARACAINE 0.5% OPHTH SOL 15ML OS (10:00)
== END 2018-07-05 10:50 | disposition home or self-care (01) ==
LOC: M OPP 07:53
DX: D62 Acute posthemorrhagic anemia (principal); K59.00 Constipation, unspecified; K64.8 Other hemorrhoids
CPT/HCPCS: 45378